=== PATIENT | female | born 1945 | race Two or more races ===

== ENCOUNTER 2022-08-10 17:30 | Emergency (ER) | payer MEDICARE, BC ==
[~2022-08-10] VITALS: Ht 152.4 cm; Wt 81.6 kg
--- NOTE | 2022-08-10 17:40 | NUR ---
PT BIBRA FROM [facility]RGENT [facility]ARE, PER EMS REPORT, URGENT CARE CALLED 911 FOR NOTED O2 DESATURATION, PT HAS HX OF COPD. PT WAS AT URGENT CARE FOR HEMATURIA, FOUL SMELLING URINE SINCE YESTERDAY. DENIES DYSURIA. 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 ARRIVED ON O2 AT 2L/MIN. AWAITING MD DOHERTY.
--- NOTE | 2022-08-10 17:52 | NUR ---
DR LAINEZ AT BEDSIDE FOR EVAL.
--- NOTE | 2022-08-10 17:53 | NUR ---
IV LINE STARTED BLOOD DRAWN AND SENT TO LAB.
--- NOTE | 2022-08-10 17:59 | NUR ---
RT AT BEDSIDE FOR BREATHING TREATMENT.
[2022-08-10] MEDS ORDERED: ALBUTEROL FS 2.5 MG/3 ML VIAL.NEB NEB ONE (18:00)
[2022-08-10] MEDS ORDERED: IV NS 0.9% 500 ML BAG IV ONE (18:00)
[2022-08-10] MEDS ORDERED: IPRATROPIUM NEB FS 0.5 MG/2.5 ML AMPUL.NEB NEB ONE (18:00)
[2022-08-10] MEDS ORDERED: ALBUTEROL FS 2.5 MG/3 ML VIAL.NEB ONE (18:07)
[2022-08-10] MEDS ORDERED: IPRATROPIUM NEB FS 0.5 MG/2.5 ML AMPUL.NEB ONE (18:07)
[2022-08-10 18:13] LABS: BASOPHILS % (AUTO) 0.4 % (0.0-2.0); EOSINOPHILS % (AUTO) 2.2 % (0.0-6.0); HEMATOCRIT 47 % (33-45); LYMPHOCYTES # (AUTO) 1.4 K/uL (0.8-4.8); LYMPHOCYTES % (AUTO) 16.4 % (20.0-44.0); MEAN CORPUSCULAR HGB CONC 32 g/dl (31.0-36.0); MEAN CORPUSCULAR VOLUME 89 fL (82-100); MONOCYTES # (AUTO) 0.7 K/uL (0.1-1.30); NEUTROPHILS # (AUTO) 6.3 K/uL (1.8-8.9); PLATELET COUNT (AUTO) 288 K/uL (150-450); RED BLOOD CELL COUNT(AUTO) 5.24 MIL/uL (4.0-5.2); WHITE BLOOD COUNT (AUTO) 8.6 K/uL (4.3-11.0)
[2022-08-10 18:25] LABS: CALCIUM, SERUM 9.9 mg/dL (8.5-10.1); CREATININE 1.3 mg/dL (0.6-1.3); POTASSIUM 3.6 mmol/L (3.5-5.1)
[2022-08-10 18:31] LABS: ALBUMIN 3.4 g/dL (3.4-5.0); BILIRUBIN,DIRECT 0.2 mg/dL (0.0-0.2); BILIRUBIN,TOTAL 0.3 mg/dL (0.2-1.0); TOTAL PROTEIN, SERUM 7.4 g/dL (6.4-8.2)
--- NOTE | 2022-08-10 18:48 | NUR ---
PT STILL UNABLE TO PROVIDE URINE SAMPLE AT THIS TIME. PROVIDED W/ ORAL FLUIDS. DR LAINEZ AWARE.
--- NOTE | 2022-08-10 19:12 | NUR ---
URINE SAMPLE COLLECTED, SENT TO LAB.
--- NOTE | 2022-08-10 19:31 | NUR ---
PT ENDORSED TO NEGATIVE STRIPPER NURSE MISAEL FOR MELODY.
[2022-08-10 20:29] LABS: BILIRUBIN,URINE 1+ (NEGATIVE); COLOR,URINE YELLOW (YELLOW); LEUKOCYTE ESTERASE ,URINE 2+ (NEGATIVE); NITRITE, URINE NEGATIVE (NEGATIVE); PH,URINE 5.5 (5.0-8.0); PROTEIN,URINE NEGATIVE (NEGATIVE); UGLUCOSE NEGATIVE (NEGATIVE); UROBILINOGEN,URINE 0.2 EU/dL (0.2)
[2022-08-10 20:49] LABS: BACTERIA,URINE 2+ /HPF (None Seen); RBC,URINE TOO NUMEROUS TO COUN /HPF (0-2); SQUAMOUS EPITHELIAL CELL,UR Few /HPF (None Seen); WBC,URINE 51-80 /HPF (0-3)
[2022-08-10] MEDS ORDERED: CEPH500C2 PO ×2 (21:00→21:14)
[2022-08-10 21:20] VITALS: BP 139/68
--- NOTE | 2022-08-10 21:20 | NUR ---
Patient discharged to home in stable condition. RX Written and verbal after care instructions given. Patient verbalizes understanding of instruction. IV removed. Catheter intact and site benign. Pressure and 4x4 applied to site. No bleeding noted.
== END 2022-08-10 21:21 | disposition home or self-care (01) ==
LOC: ER 17:35
DX: J44.9 Chronic obstructive pulmonary disease, unspecified (principal); N39.0 Urinary tract infection, site not specified; R31.9 Hematuria, unspecified; I10 Essential (primary) hypertension; Z79.899 Other long term (current) drug therapy
CPT/HCPCS: 99285; 96360; 71045; 93005; 85025; 80048; 87086; 80076; 81001; 36415; 94640; J7040

== ENCOUNTER 2022-10-28 23:03 | Emergency (ER) | payer MEDICARE, BC ==
[~2022-10-28] VITALS: Ht 152.4 cm; Wt 73.0 kg
[~2022-10-28 23:03] MED LIST: CEPH500C2 PO
--- NOTE | 2022-10-28 23:10 | NUR ---
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
[2022-10-28] MEDS ORDERED: ALBUTEROL FS 2.5 MG/3 ML VIAL.NEB NEB ONE (23:30)
[2022-10-28] MEDS ORDERED: IPRATROPIUM NEB FS 0.5 MG/2.5 ML AMPUL.NEB NEB ONE (23:30)
[2022-10-28] MEDS ORDERED: IPRATROPIUM NEB FS 0.5 MG/2.5 ML AMPUL.NEB ONE (23:40)
[2022-10-28] MEDS ORDERED: ALBUTEROL FS 2.5 MG/3 ML VIAL.NEB ONE (23:40)
--- NOTE | 2022-10-28 23:40 | NUR ---
RT AT BEDSIDE FOR BREATHING TREATMENT
--- NOTE | 2022-10-28 23:48 | NUR ---
JASON FERGUSON CARDIAC NURSE PRACTITIONER #[phone]
--- NOTE | 2022-10-29 00:22 | NUR ---
Son here with pt's home oxygen and will take pt home .
[2022-10-29 00:23] VITALS: BP 147/89
--- NOTE | 2022-10-29 00:24 | NUR ---
Patient discharged to home in stable condition. Written and verbal after care instructions given. Patient verbalizes understanding of instruction.
== END 2022-10-29 00:24 | disposition home or self-care (01) ==
LOC: ER 23:05
DX: J44.9 Chronic obstructive pulmonary disease, unspecified (principal); I10 Essential (primary) hypertension; I48.91 Unspecified atrial fibrillation; Z79.2 Long term (current) use of antibiotics
CPT/HCPCS: 94799-TC

== ENCOUNTER 2025-02-27 19:48 | Emergency (ER) | payer MEDICARE, OTHER ==
[~2025-02-27] VITALS: Ht 152.4 cm; Wt 65.8 kg
[2025-02-27] MEDS: IV NS 0.9% 500 ML BAG IV ONE (20:34)
[2025-02-27 20:46] LABS: PLATELET COUNT (AUTO) 280 K/uL (150-450); RED BLOOD CELL COUNT(AUTO) 4.61 MIL/uL (4.0-5.2); RED CELL DISTRIBUTION WIDTH 14.4 % (11.5-15.0); WHITE BLOOD COUNT (AUTO) 13.5 K/uL (4.3-11.0)
[2025-02-27 20:49] LABS: CALCIUM, SERUM 9.5 mg/dL (8.5-10.1); CREATININE 1.3 mg/dL (0.6-1.3); SODIUM SERUM 140.0 mmol/L (136-145); UREA NITROGEN, BLOOD 27.0 mg/dL (7-18)
[2025-02-27 20:52] LABS: APPEARANCE,URINE TURBID (CLEAR); BLOOD, URINE 3+ Ery/uL (NEGATIVE); LEUKOCYTE ESTERASE ,URINE NEGATIVE (NEGATIVE); NITRITE, URINE NEGATIVE (NEGATIVE); UGLUCOSE NEGATIVE (NEGATIVE)
[2025-02-27 20:54] LABS: INR 0.98 (0.91-1.10)
[2025-02-27 20:58] LABS: ADD URINE CULTURE NO
[2025-02-28] MEDS ORDERED: NITR100C6 PO (00:31)
[2025-02-28 00:41] VITALS: BP 134/79; TEMP 98; O2SAT 98
== END 2025-02-28 00:41 | disposition home or self-care (01) ==
LOC: ER 19:53
DX: R31.9 Hematuria, unspecified (principal); E86.0 Dehydration; I10 Essential (primary) hypertension; J44.89 Other specified chronic obstructive pulmonary disease; Z96.643 Presence of artificial hip joint, bilateral; Z98.82 Breast implant status; Z99.81 Dependence on supplemental oxygen; Z86.79 Personal history of other diseases of the circulatory system
CPT/HCPCS: 36415; 80048-TC; 81001; 85025-TC; 85730-TC